=== PATIENT | female | born 1945 | race Caucasian/White ===

== ENCOUNTER 2017-03-15 09:51 | Day surgery (SDC) | payer OTHER ==
[2017-03-15 10:34] LABS: % IMMATURE GRANULYOCYTES 0.6 % (0.0-1.1); ABSOLUTE IMMATURE GRANULOCYTES 0.07 10^3/uL (0.00-0.10); ADD DIFF? NO; ADD MORPH? YES; ADD SCAN? NO; ATYPICAL LYMPHOCYTE FLAG 30 (0-99); FRAGMENT RBC FLAG 50 (0-99); HEMATOCRIT 25.3 % (38.0-47.0); HEMOGLOBIN 7.8 g/dL (12.6-16.3); LEFT SHIFT FLG 0 (0-99); LIPEMIA HEMOLYSIS FLAG 80 (0-99); MEAN CELL HEMOGLOBIN 23.1 pg (27.9-34.1); MEAN CELL HEMOGLOBIN CONCENTR. 30.8 g/dL (32.4-36.7); MEAN CELL VOLUME 74.9 fL (81.5-99.8); MEAN PLATELET VOLUME 9.5 fL (8.7-11.7); PLATELET CLUMPS FLAG 0 (0-99); PLATELET COUNT 730 10^3/uL (150-400); RED BLOOD CELL COUNT 3.38 10^6/uL (4.18-5.33)
[2017-03-15 10:38] LABS: RED CELL DISTRIBUTION WIDTH 20.1 % (11.5-15.2)
[2017-03-15 10:43] LABS: INR 1.16 (0.83-1.16); PROTIME(PATIENT) 14.8 SEC (12.0-15.0)
[2017-03-15 10:44] LABS: APTT 38.6 SEC (23.0-38.0)
[2017-03-15] MEDS ORDERED: DEXAMETHASONE 10 MG/ML VIAL IVP ONE (11:07)
[2017-03-15] MEDS ORDERED: ceFAZolin 2 GM/DEXTROSE 100 ML IV ONE (11:07)
[2017-03-15] MEDS ORDERED: NS 1,000 ML IV ONE (11:07)
[2017-03-15] MEDS ORDERED: CEFAZOLIN 2 GM/DEXTROSE/100 ML BAG IV ONE (11:10)
[2017-03-15] MEDS ORDERED: DEXAMETHASONE 10 MG/ML VIAL ONE (11:10)
[2017-03-15 11:25] LABS: HYPOCHROMIA 2+; MICROCYTES 2+; PLATELET ESTIMATE INCREASED (ADEQ); SCHISTOCYTES 2+
[2017-03-15 11:26] LABS: TARGET CELLS 1+
[2017-03-15] MEDS ORDERED: LIDOCAINE 2% 5 ML SDV ONE (11:26)
[2017-03-15] MEDS ORDERED: ROCURONIUM 50 MG/5 ML VIAL ONE (11:26)
[2017-03-15] MEDS ORDERED: fentaNYL 100 MCG/2 ML INJ ONE (11:27)
[2017-03-15] MEDS ORDERED: PROPOFOL 200 MG/20 ML VIAL ONE (11:27)
[2017-03-15] MEDS ORDERED: ONDANSETRON 4 MG/2 ML VIAL ONE (13:21)
[2017-03-15] MEDS ORDERED: SUGAMMADEX SODIUM 200 MG/2 ML VIAL IVP ONE (13:22)
[2017-03-15] MEDS ORDERED: ONDANSETRON 4 MG/2 ML VIAL IVP PRN ×2 (14:19→14:27)
[2017-03-15] MEDS ORDERED: oxyCODONE IR 5 MG TAB PO PRN (14:19)
[2017-03-15] MEDS ORDERED: ONDANSETRON DISINTEGRATING 4 MG TAB PO PRN (14:20)
[2017-03-15] MEDS ORDERED: LIDOCAINE 1% 300 MG/30 ML SDV ONE (14:22)
[2017-03-15] MEDS ORDERED: BUPIVACAINE 0.5% 30 ML SDV ONE (14:22)
[2017-03-15] MEDS ORDERED: PROMETHAZINE HCL 25 MG/ML INJ IVP PRN (14:27)
[2017-03-15] MEDS ORDERED: fentaNYL 100 MCG/2 ML INJ IVP PRN (14:27)
[2017-03-15] MEDS ORDERED: HYDROCODONE/APAP 5/325 TAB PO PRN (14:27)
[2017-03-15] MEDS ORDERED: HYDROmorphONE/DILAUDID 1 MG/ML SYR IVP PRN (14:27)
[2017-03-15] MEDS ORDERED: ACETAMINOPHEN 500 MG TAB PO PRN (14:27)
[2017-03-15] MEDS ORDERED: NALOXONE HCL 0.4 MG/ML INJ IVP PRN (14:27)
[2017-03-15] MEDS ORDERED: OXYCODONE/APAP 5/325 TAB PO PRN (14:27)
[2017-03-15] MEDS ORDERED: METHOCARBAMOL 500 MG TAB PO SCH (16:00)
[2017-03-15 18:34] VITALS: BP 153/70; RESP 26
[2017-03-15 18:41] VITALS: PULSE 76
[2017-03-15 19:05] VITALS: O2SAT 92
[2017-03-15 19:25] VITALS: TEMP 97.2
== END 2017-03-15 18:05 | disposition home or self-care (01) ==
LOC: FIMAGING 09:51
PROVIDERS: ATTEND Neurological Surgery
PROC: 0PU43JZ Supplement Thoracic Vertebra with Synthetic Substitute, Percutaneous Approach (ICD-10-PCS; principal; 2017-03-15 11:00)
DX: M96.89 Other intraoperative and postprocedural complications and disorders of the musculoskeletal system (principal); M54.6 Pain in thoracic spine; Z98.1 Arthrodesis status
CPT/HCPCS: J0690; J1100; J1642; J2405; J2704; J3010

== ENCOUNTER → 2017-03-22 | Outpatient (CLI) | payer OTHER | LOC: FIMAGING 10:05 | PROVIDERS: ATTEND Neurological Surgery | DX: Z09 Encounter for follow-up examination after completed treatment for conditions other than malignant neoplasm (principal); Z98.1 Arthrodesis status ==